=== PATIENT | female | born 1945 | race Caucasian/White ===

== ENCOUNTER 2018-03-09 08:18 | Day surgery (SDC) | payer OTHER ==
[~2018-03-09 08:18] MED LIST: ACETAMINOPHEN 325 MG TAB PO; PHENYLEPHRINE HCL 10 % OPHTH. SOL 5ML OS
[2018-03-09] MEDS ORDERED: OFLOXACIN 0.3 % (OCUFLOX) OPTH SOL 5ML As Ordered (08:21)
[2018-03-09] MEDS ORDERED: MIDAZOLAM INJ 2 MG/2 ML VIAL (J2250) As Ordered (08:51)
[2018-03-09] MEDS ORDERED: fentaNYL 100 MCG/2 ML INJECTION (J3010) As Ordered (08:51)
[2018-03-09 09:07] LABS: BEDSIDE GLUCOSE 136 MG/DL (83-110)
[2018-03-09] MEDS: LIDOCAINE 3.5 % 1ML OPHTH TOPICAL GEL OU (09:07)
[2018-03-09] MEDS: OFLOXACIN 0.3 % (OCUFLOX) OPTH SOL 5ML OS (09:07)
[2018-03-09] MEDS: TROPICAMIDE 1% OPHTH SOLN 2ML OS (09:08)
[2018-03-09] MEDS: PHENYLEPHRINE 2.5% OPHTH SOL 2ML OS (09:08)
[2018-03-09] MEDS: CYCLOPENTOLATE 2% OPHTH SOLN 2ML BTL OS (09:08)
[2018-03-09] MEDS: MOXIFLOXACIN IN BSS 0.25MG/0.25ML INTRACAMERAL INJ (OR EYE ONLY)(J2280) As Ordered (09:40)
[2018-03-09] MEDS: TRIAMCINOLONE PRES FR 40 MG/ML 1ML(TRIESENCE)(OR EYE ONLY)(J3300 PER 1MG) As Ordered (09:40)
[2018-03-09] MEDS: HEALON DUET (HEALON 10MG/ML 0.55ML & HEALON ENDOCOAT 30MG/ML 0.85ML) As Ordered (09:40)
[2018-03-09] MEDS: LIDOCAINE 1% SDV 5 ML VIAL As Ordered (09:40)
[2018-03-09] MEDS: POVIDONE-IODINE 5% OPHTH PREP SOL 30ML As Ordered (09:40)
[2018-03-09] MEDS: BSS with VANC/TOB/EPI for EYE CASES IR (09:41)
[2018-03-09] MEDS ORDERED: AcetaZOLAMIDE 500 MG ER CAP PO (10:00)
[2018-03-09] MEDS ORDERED: TRIMETHOBENZAMIDE 300 MG CAP PO (10:00)
[2018-03-09] MEDS ORDERED: AcetaZOLAMIDE 500 MG ER CAP As Ordered (10:01)
[2018-03-09] MEDS ORDERED: ACETAMINOPHEN TAB 650MG DOSE (2X325MG) PO (10:15)
[2018-03-09] MEDS ORDERED: LR 1,000 ML IV (10:15)
[2018-03-09] MEDS ORDERED: ONDANSETRON 4MG/2ML VIAL (J2405) IV (10:15)
== END 2018-03-09 10:40 | disposition home or self-care (01) ==
LOC: M SDC 08:18
DX: H26.9 Unspecified cataract (principal); I10 Essential (primary) hypertension; E11.9 Type 2 diabetes mellitus without complications; M17.12 Unilateral primary osteoarthritis, left knee; R21 Rash and other nonspecific skin eruption; F32.9 Major depressive disorder, single episode, unspecified; G47.30 Sleep apnea, unspecified; Z79.899 Other long term (current) drug therapy; Z79.84 Long term (current) use of oral hypoglycemic drugs
CPT/HCPCS: 66984

== ENCOUNTER 2018-05-02 08:54 | Day surgery (SDC) | payer MEDICARE, OTHER ==
[~2018-05-02 08:54] MED LIST changes: +PHENYLEPHRINE HCL 10 % OPHTH. SOL 5ML OD; -PHENYLEPHRINE HCL 10 % OPHTH. SOL 5ML OS
[2018-05-02] MEDS ORDERED: TROPICAMIDE 1% OPHTH SOLN 2ML As Ordered (09:30)
[2018-05-02] MEDS ORDERED: CYCLOPENTOLATE 2% OPHTH SOLN 2ML BTL As Ordered (09:30)
[2018-05-02] MEDS ORDERED: PHENYLEPHRINE 2.5% OPHTH SOL 2ML As Ordered (09:30)
[2018-05-02] MEDS ORDERED: OFLOXACIN 0.3 % (OCUFLOX) OPTH SOL 5ML As Ordered (09:30)
[2018-05-02 09:35] LABS: BEDSIDE GLUCOSE 155 MG/DL (83-110)
[2018-05-02] MEDS: OFLOXACIN 0.3 % (OCUFLOX) OPTH SOL 5ML OD (09:45)
[2018-05-02] MEDS: PHENYLEPHRINE 2.5% OPHTH SOL 2ML OD (09:45)
[2018-05-02] MEDS: LIDOCAINE 3.5 % 1ML OPHTH TOPICAL GEL OU (09:45)
[2018-05-02] MEDS: TROPICAMIDE 1% OPHTH SOLN 2ML OD (09:46)
[2018-05-02] MEDS: CYCLOPENTOLATE 2% OPHTH SOLN 2ML BTL OD (09:46)
[2018-05-02] MEDS ORDERED: fentaNYL 100 MCG/2 ML INJECTION (J3010) As Ordered (10:44)
[2018-05-02] MEDS ORDERED: MIDAZOLAM INJ 2 MG/2 ML VIAL (J2250) As Ordered (10:45)
[2018-05-02] MEDS: POVIDONE-IODINE 5% OPHTH PREP SOL 30ML As Ordered (11:13)
[2018-05-02] MEDS: LIDOCAINE 1% SDV 5 ML VIAL As Ordered (11:13)
[2018-05-02] MEDS: HEALON DUET (HEALON 10MG/ML 0.55ML & HEALON ENDOCOAT 30MG/ML 0.85ML) As Ordered (11:13)
[2018-05-02] MEDS: MOXIFLOXACIN IN BSS 0.25MG/0.25ML INTRACAMERAL INJ (OR EYE ONLY)(J2280) As Ordered (11:13)
[2018-05-02] MEDS: TRIAMCINOLONE PRES FR 40 MG/ML 1ML(TRIESENCE)(OR EYE ONLY)(J3300 PER 1MG) As Ordered (11:14)
[2018-05-02] MEDS: BSS with VANC/TOB/EPI for EYE CASES IR (11:14)
[2018-05-02] MEDS ORDERED: AcetaZOLAMIDE 500 MG ER CAP As Ordered (11:59)
[2018-05-02] MEDS: AcetaZOLAMIDE 500 MG ER CAP PO (12:05)
[2018-05-02] MEDS ORDERED: TRIMETHOBENZAMIDE 300 MG CAP PO (12:15)
== END 2018-05-02 12:15 | disposition home or self-care (01) ==
LOC: M SDC 08:54
DX: H25.9 Unspecified age-related cataract (principal); E11.9 Type 2 diabetes mellitus without complications; I10 Essential (primary) hypertension; Z79.899 Other long term (current) drug therapy; F41.9 Anxiety disorder, unspecified; F32.9 Major depressive disorder, single episode, unspecified
CPT/HCPCS: 66984

== ENCOUNTER → 2019-03-24 | Outpatient (CLI) | payer MEDICARE ==
[~2019-03-24] MED LIST changes: -ACETAMINOPHEN 325 MG TAB PO; +GLIP2.5T6; +LISI10TA4 PO; +METF500T13 PO; -PHENYLEPHRINE HCL 10 % OPHTH. SOL 5ML OD; +ROSU10TA5 PO; +VITA100067 PO
[2019-03-24 17:23] LABS: HEMATOCRIT 33.9 % (36.0-47.0); HEMOGLOBIN 10.8 g/dl (12.0-15.5); MEAN CORPUSCULAR HEMOGLOBIN 30.2 pg (27.0-33.0); MEAN CORPUSCULAR HGB CONC 31.9 g/dl (32.0-36.5); MEAN CORPUSCULAR VOLUME 94.7 fl (80.0-96.0); PLATELET COUNT, AUTOMATED 279 10^3/uL (150-450); RED BLOOD COUNT 3.58 10^6/uL (4.00-5.40); WHITE BLOOD COUNT 8.3 10^3/uL (4.0-10.0)
[2019-03-24 17:31] LABS: INR 0.97
[2019-03-24 17:38] LABS: ALBUMIN 3.7 GM/DL (3.2-5.2); ALT/SGPT 17 U/L (12-78); BILIRUBIN,TOTAL 0.3 MG/DL (0.2-1.0); BLOOD UREA NITROGEN 17 MG/DL (7-18); CARBON DIOXIDE LEVEL 26 MEQ/L (21-32); CHLORIDE LEVEL 109 MEQ/L (98-107); CREATININE FOR GFR 0.82 MG/DL (0.55-1.30); GLOMERULAR FILTRATION RATE > 60.0 (>39); GLUCOSE, FASTING 107 MG/DL (70-100); POTASSIUM SERUM 4.2 MEQ/L (3.5-5.1); SODIUM LEVEL 144 MEQ/L (136-145); TOTAL PROTEIN 7.7 GM/DL (6.4-8.2)
--- NOTE | 2019-03-24 19:41 | REP ---
REASON: Preoperative evaluation prior to knee surgery. FINDINGS: The superior mediastinal structures are midline. The cardiac silhouette is unremarkable in size, shape, and position. The diaphragmatic surfaces of the lungs are regular, and the costophrenic angles are clear. The pulmonary thomson are clear. The imaged osseous structures are intact. IMPRESSION: There is no acute cardiopulmonary disease. Electronically Signed by Jack Silverman DO 03/27/2019 12:56 P
--- NOTE | 2019-03-24 20:24 | ECGEPIP ---
[facility] Test Date: 2019-03-24 Pat Name: MARISSA CLEMENS Department: Room: - Gender: Female D[employer] Worker: [facility] : 1945 Requested By: Fabian Maxwell Order Number: [id number] Reading MD: Alex Ambrose Measurements Intervals [place] Rate: 57 P: 28 CO: 175 QRS: QRSD: 125 T: 51 QT: 416 QTc: 406 Interpretive Statements Sinus bradycardia LA conduction disturbance Left axis deviation Left ventricular hypertrophy by Alfredo No prior tracing for comparison. Clincal correlation advised criteria Electronically Signed on 03-24-2019 20:24:12 EDT by Alex Ambrose
[2019-03-24 21:04] LABS: ERYTHROCYTE SEDIMENTATION RATE 42 mm/hr (0-30)
== END ==
LOC: M LAB 15:39
PROVIDERS: ATTEND Orthopaedic Surgery
DX: Z01.818 Encounter for other preprocedural examination (principal); M17.12 Unilateral primary osteoarthritis, left knee; E10.9 Type 1 diabetes mellitus without complications

== ENCOUNTER → 2019-04-07 | Outpatient (CLI) | payer MEDICARE ==
[~2019-04-07] MED LIST changes: +PERC5TAB12 PO; +XARE10TA PO
== END ==
LOC: M PT 12:47
PROVIDERS: ATTEND Orthopaedic Surgery
DX: M17.12 Unilateral primary osteoarthritis, left knee (principal); Z01.818 Encounter for other preprocedural examination

== ENCOUNTER 2019-04-12 08:00 | Inpatient (IN) | payer MEDICARE ==
--- NOTE | 2019-04-07 08:13 | HPE ---
DATE OF ANTICIPATED ADMISSION: 04/12/2019 ATTENDING PHYSICIAN: Dr. Fabian Maxwell CHIEF COMPLAINT: Left knee pain and stiffness. HISTORY: Patient is a 73-year-old female with progressively worsening left knee pain and stiffness. She has failed to improve with conservative measures. She continues to have symptoms with weightbearing activities and activities of daily living. She has consented for an elective left total knee arthroplasty with Dr. Maxwell for her continued symptoms. CURRENT MEDICATIONS: - Metformin 500 mg twice daily - lisinopril 10 mg daily - rosuvastatin 10 mg daily ALLERGIES: There are no known drug allergies. CHRONIC MEDICAL CONDITIONS: 1. Diabetes 2. Hypertension 3. Hyperlipidemia. PREVIOUS SURGERIES: Include a hysterectomy. SOCIAL HISTORY: She does not use tobacco or alcohol. FAMILY HISTORY: Noncontributory. REVIEW OF SYSTEMS: Patient denies fevers, chills, nausea, vomiting or diarrhea. She denies chest pain, shortness of breath, lightheadedness, dizziness or headaches. She denies abdominal pain. She denies recent upper respiratory or urinary tract infection symptoms. The patient does continue to have left knee pain with weightbearing activities and activities of daily living. PHYSICAL EXAMINATION: GENERAL: Well-nourished, well-developed female in no apparent distress. She is alert, oriented and cooperative. Mood and affect are appropriate. VITAL SIGNS: Height 5 feet 1 inch, weight 159 pounds, temperature 97.1, blood pressure 118/68. NECK: Supple without lymphadenopathy. HEART: Regular rate and rhythm. LUNGS: Clear to auscultation bilaterally. ABDOMEN: Soft, nontender to palpation. Bowel sounds are present. MUSCULOSKELETAL: Left knee exhibits no erythema, edema or ecchymosis. There is tenderness along the medial joint line. Patient has full extension of the knee, but can only flex to about 100 degrees. Left lower extremity strength is 5/5. No hip irritability was elicited with range of motion testing. The patient's calf is soft, nontender to palpation with no palpable cords noted. She is neurovascularly intact distally. LABORATORY DATA: Chest x-ray: No acute cardiopulmonary disease. Left knee x-ray: Notable for end-stage degenerative changes with [id number] contact in the medial femoral tibial compartment. EKG: Sinus bradycardia with a left anterior conduction disturbance, left axis deviation and left ventricular hypertrophy. Prothrombin time 13, INR 0.97. Comprehensive metabolic profile: Fasting glucose elevated at 107, BUN 17, creatinine 0.82, GFR greater than 60, sodium 144, potassium 4.2, chloride elevated at 109, carbon dioxide 26, anion gap 9, calcium 9.0. AST 15, ALT 17, alkaline phosphatase 67, total bilirubin 0.3, total protein 7.7, albumin 3.7, albumin-globulin ratio decreased at 0.93. Complete blood count: WBC is 8.3, RBC is decreased at 3.58, hemoglobin decreased at 10.8, hematocrit decreased at 33.9, platelets 279. Erythrocyte sedimentation rate elevated at 42. IMPRESSION: Left knee osteoarthritis with x-rays notable for end-stage degenerative changes. PLAN: Patient has consented for an elective left total knee arthroplasty with Dr. Maxwell for her continued symptoms. Medical optimization pending with Dr. Stallworth. Patient was recently started on iron supplementation for her anemia. [facility]
[~2019-04-12] VITALS: Ht 154.9 cm; Wt 71.1 kg
[2019-04-12] VITALS (7 sets, daily range): BP systolic 94–146; BP diastolic 70–85
[~2019-04-12 08:00] MED LIST changes: -PERC5TAB12 PO; -XARE10TA PO
[2019-04-12] MEDS ORDERED: PROPOFOL 200 MG/20 ML VIAL As Ordered ONE (09:08)
[2019-04-12] MEDS ORDERED: ONDANSETRON 4MG/2ML VIAL (J2405) As Ordered ONE (09:08)
[2019-04-12] MEDS ORDERED: LIDOCAINE 2% INJ 100 MG/5 ML SDV (FOR ANES.) As Ordered ONE (09:08)
[2019-04-12] MEDS ORDERED: fentaNYL 100 MCG/2 ML INJECTION (J3010) As Ordered ONE ×2 (09:09→09:21)
[2019-04-12] MEDS ORDERED: MIDAZOLAM INJ 2 MG/2 ML VIAL (J2250) As Ordered ONE ×2 (09:09→09:21)
[2019-04-12] MEDS ORDERED: LR 1,000 ML IV ONE (09:45)
[2019-04-12] MEDS ORDERED: ceFAZolin 1GM INJ (J0690 PER 500MG) As Ordered ONE (10:09)
[2019-04-12] MEDS ORDERED: TRANEXAMIC ACID 100 MG/ML 10ML VIAL As Ordered ONE (10:09)
[2019-04-12] MEDS ORDERED: EPINEPHrine INJ 1 MG/ML 1ML AMP As Ordered ONE (10:10)
[2019-04-12] MEDS ORDERED: BUPIVACAINE LIPOSOME/PF 1.3% 20ML VIAL (13.3MG/ML)(EXPAREL)(C9290 PER1MG) As Ordered ONE (10:10)
--- NOTE | 2019-04-12 10:12 | IPN ---
DATE: 04/12/2019 Patient is going to go ahead with a left total knee arthroplasty. She was still having significant difficulties with it. She has had a preoperative clearance. She understands the nature of the procedure, the risks of bleeding, infection damage to nerves, vessels, persistent pain, wear loosening and blood clots, medical problems, among others. We will plan to proceed with a left knee arthroplasty.
[2019-04-12] MEDS ORDERED: MIDAZOLAM INJ 2 MG/2 ML VIAL (J2250) IV ONE (10:30)
[2019-04-12] MEDS ORDERED: fentaNYL 100 MCG/2 ML INJECTION (J3010) IV ONE (10:30)
[2019-04-12] MEDS ORDERED: ROPIvacaine 0.5% 30 ML INJECTION (J2795 PER 1MG) ONE (10:37)
[2019-04-12] MEDS ORDERED: dexameTHASONE 10 MG/1 ML VIAL PRES.FREE (J1100) ONE (10:37)
[2019-04-12] MEDS ORDERED: ceFAZolin 2 GM/D5W 50 ML IV BAG (J0690 PER 500MG) As Ordered ONE (10:40)
[2019-04-12] MEDS ORDERED: BUPIVACAINE/DEXTROSE 0.75% 2 ML AMP As Ordered ONE (11:24)
[2019-04-12] MEDS ORDERED: FLEET ENEMA PR PRN (13:00)
[2019-04-12] MEDS ORDERED: MORPHINE 4 MG/ML 1ML VIAL/SYRINGE (J2270) IV PRN ×2 (13:00)
[2019-04-12] MEDS ORDERED: ONDANSETRON 4MG/2ML VIAL (J2405) IV PRN ×3 (13:00→15:45)
[2019-04-12] MEDS ORDERED: fentaNYL 100 MCG/2 ML INJECTION (J3010) IV PRN ×2 (13:00→15:45)
[2019-04-12] MEDS ORDERED: ACETAMINOPHEN TAB 650MG DOSE (2X325MG) PO PRN (13:00)
[2019-04-12] MEDS ORDERED: LR 1,000 ML IV SCH ×2 (13:00→15:45)
--- NOTE | 2019-04-12 13:06 | RO ---
DATE OF PROCEDURE: 04/12/2019 PREOPERATIVE DIAGNOSIS: Left knee osteoarthritis. POSTOPERATIVE DIAGNOSIS: Left knee osteoarthritis. PROCEDURE: Left total knee arthroplasty using an Attune rotating platform cruciate sacrificing size 5 femur and 5 tibia with a 7 thickness polyethylene and a 35 patellar button. SURGEON: Fabian Maxwell MD COMMERCIAL ACCOUNT EXECUTIVE: DARIELA Newsome ANESTHESIA: Spinal. COMPLICATIONS: None. INDICATIONS: 73-year-old woman who has had gradually worsening left knee pain. She has had significant medial side arthritis and cystic change. She wished to go ahead with a knee replacement having failed conservative management. She understood the nature and the risks associated with it. DESCRIPTION OF PROCEDURE: The patient was taken to the operating room and placed supine position after spinal anesthesia was induced. The left lower extremity was prepped and draped in usual sterile fashion. Time-out was performed. I then created a longitudinal incision over the anterior aspect of the knee. Sharp dissection was carried down through subcutaneous tissue. Performed a medial parapatellar arthrotomy per routine. I then everted the patella, flexed the knee up, removed some osteophytes with a rongeur. There was a large cystic defect on the medial femoral condyle. I used a canal initiating reamer, followed by the intramedullary guide set at 5 degrees of valgus 9 mm cut. This was pinned in place by the pediatric physician assistant. The distal femoral cut was made, which effectively removed the cystic change. I then sized the femur to be a 5 and the drill holes were placed in the end of the femur with a cutting block being secured, and the remaining four cuts were made. I then prepared the tibia. Post retractors placed and the tibial alignment guide was placed in appropriate amount of valgus and posterior slope, and I pinned this in place 4 mm off the low side. The proximal tibia cut was made protecting the posterior cruciate ligament (PCL) but the PCL was deficient following this, so I decided to go with a posterior stabilized knee. We then used a grey percher to remove soft tissue and osteophytes from either side of the knee. This box cutting guide was then secured, and the remaining three cuts were made. I sized the tibia to be a 5. This was drilled and broached, and then trial components were placed. I was very pleased with the fit of the size 5 femur and 5 tibial tray. I had also used spacer blocks and decided between a 7 and an 8 polyethylene, but the 7 seemed to be the most appropriate with the trial components. I then freehand cut the patella removing about 7 mm of bone, sized to be a 35. The drill holes were placed and the drill holes were placed in the end of the femur, and the patella tracked very nicely. The pediatric physician assistant prepared the bone cement in the modern technique. Overall, I was very pleased with the alignment and soft tissue balance. The trial components removed. I then cemented on the tibial tray, impacted it in place. Cemented on the femoral component, impacted it in place. Removed all excess bone cement. Placed the polyethylene. Brought the knee out in extension. Cemented on the patella and held this in place with a patellar clamp. I injected the Exparel in the deep tissues. The tranexamic acid (TXA) solution was placed. I had irrigated multiple times prior to this and carefully irrigated and dried the bony surfaces prior to cementing. Final deep irrigation was performed. I closed the deep layer with #1 Vicryl suture in interrupted fashion, followed by running Stratafix suture. This obtained a watertight closure. Irrigated the subcu and this was closed #2-0 Vicryl and the skin with jocelyn. Sterile dressing was applied. Tourniquet was deflated, and she was taken to recovery room in stable condition. There were no known complications. The plan will be routine postop. The pediatric physician assistant was instrumental in holding retractors, making the distal femoral cut, assisting in mixing the bone cement, and assisting in wound closure.
--- NOTE | 2019-04-12 13:07 | REP ---
Clinical: Status post knee replacement. Technique AP and cross-table lateral views. Findings: The patient is status post left knee replacement with normal positioning and appearance to the femoral and tibial components. Overlying postsurgical changes appreciated. Impression: Status post left knee replacement. Electronically Signed by Marquise Vazquez MD 04/12/2019 12:59 P
[2019-04-12] MEDS: LR 1,000 ML IV SCH (14:15)
[2019-04-12] MEDS ORDERED: GLUCAGON FOR INJ 1 MG VIAL (J1610) SC PRN (14:45)
[2019-04-12] MEDS ORDERED: GLUCOSE 4 GM CHEW TABLET PO PRN (14:45)
[2019-04-12] MEDS ORDERED: DEXTROSE 50% 50 ML SYRINGE IV PRN (14:45)
[2019-04-12 15:13] LABS: HEMATOCRIT 33.5 % (36.0-47.0); HEMOGLOBIN 10.8 g/dl (12.0-15.5); MEAN CORPUSCULAR HEMOGLOBIN 30.8 pg (27.0-33.0); MEAN CORPUSCULAR HGB CONC 32.2 g/dl (32.0-36.5); MEAN CORPUSCULAR VOLUME 95.4 fl (80.0-96.0); PLATELET COUNT, AUTOMATED 245 10^3/uL (150-450); RED BLOOD COUNT 3.51 10^6/uL (4.00-5.40); WHITE BLOOD COUNT 10.1 10^3/uL (4.0-10.0)
--- NOTE | 2019-04-12 15:32 | CR ---
DATE OF CONSULTATION: 04/12/2019 PRIMARY CARE PROVIDER: Dr. Greyson Stallworth. REFERRING PHYSICIAN: Dr. Fabian Maxwell. REASON FOR CONSULTATION: Medical management of diabetes and hypertension. HISTORY OF PRESENT ILLNESS: 73-year-old female with a past medical history significant for diabetes, hypertension, osteoarthritis bilateral knees and hyperlipidemia, previous history of uterine prolapse with hysterectomy, bilateral cataract surgery and cholecystectomy who presents for left knee replacement due to worsening activities of daily living (ADLs) and inability to weight bear. Patient otherwise feels well. Patient underwent left knee replacement with postop 5/10 dull achiness for which she is requesting pain medications. No fevers, shortness of breath, chest pain, pressure or tightness, lightheadedness or dizziness after surgery. Lower extremity numbness has worn off after postoperatively. She otherwise has no fever, chills, dysuria, urgency or frequency. Hospitalist was consulted to manage diabetes, hypertension, and hyperlipidemia. The patient says she lives alone with her dog in an apartment in [place] with an elevator. She has help both from her daughter, who lives in [place], and her future [id number], who works at [employer] as well as a sister in [place]. Everything is on one floor and no other physical obstructions for ambulation at home. PAST MEDICAL HISTORY: Diabetes. Hypertension. Hyperlipidemia. Uterine prolapse. PAST SURGICAL HISTORY: Hysterectomy secondary to uterine prolapse. Three vaginal deliveries. Cholecystectomy. Bilateral cataract surgery. SOCIAL HISTORY: Lives alone with her dog. Has help. A sister who lives in [place], daughter in [place], and a future [id number] who works at [employer], who will be bringing her home tomorrow. Patient is retired, previously worked as a meat dresser and in retail. She did try smoking when she was a teenager. Denies any recreational drug use. FAMILY HISTORY: Mother at age 67 with lung cancer with bone mets. Had previous exposure to asbestos. Also was a diabetic. Stepfather unknown. Biological father unknown. She has two sisters and three brothers, unknown medical illnesses. REVIEW OF SYSTEMS: 12-point system otherwise negative. HOME MEDICATIONS: Please see below. PHYSICAL EXAMINATION: Temperature 97.5, pulse 71, respiratory rate 18, blood pressure 145/57, 98% 2 liters nasal cannula. Generally, awake, alert and oriented times three. No cyanosis. No use of respiratory accessory muscles. Anicteric sclerae. No jaundice. No cervical lymphadenopathy or thyromegaly. Moist mucous membranes. Lungs are clear auscultation. No wheezing, rales or rhonchi. Heart: S1, S2, sinus rhythm. No murmurs, rubs or gallops. Abdomen: Soft, obese, nontender, nondistended. Positive bowel sounds in all four quadrants. Extremities: Left postop bandage. Skin warm and dry currently has thromboembolic deterrent stockings (TEDS) stockings. Able to wiggle all of her toes. LABORATORY DATA: Glucose 162. No labs are available. ASSESSMENT/PLAN: 73-year-old with diabetes, hypertension, hyperlipidemia, uterine prolapse, previous hysterectomy, gallbladder surgery, bilateral cataract surgery presents for left knee replacement due to severe osteoarthritis and difficulty with activities of daily living (ADLs). CURRENT ISSUES: 1. Postop left knee secondary to osteoarthritis with left knee replacement. Postop management per primary team, Dr. Maxwell. Activity and deep venous thrombosis prophylaxis, bowel regimen. 2. Diabetes: Check A1c. Patient will be placed on consistent carbohydrate diet, insulin sliding scale with coverage and will adjust medications accordingly. Her metformin will be held as an inpatient. Will be resumed as an outpatient. 3. Hypertension: Currently controlled on lisinopril, which we will continue. Check a creatinine level and adjust accordingly. 4. Hyperlipidemia: Check lipid panel in the morning. Resume patient's rosuvastatin. 5. Uterine prolapse status post hysterectomy. 6. Deep venous thrombosis prophylaxis per primary team. 7. Diet: Consistent carbohydrate diet. DISPOSITION: Defer to primary team. Acute rehabilitation unit, physical therapy (ARUPT), acute rehabilitation unit have been consulted,
[2019-04-12 15:52] LABS: BLOOD UREA NITROGEN 20 MG/DL (7-18); CALCIUM LEVEL 9.4 MG/DL (8.8-10.2); CARBON DIOXIDE LEVEL 26 MEQ/L (21-32); CHLORIDE LEVEL 109 MEQ/L (98-107); CREATININE FOR GFR 0.88 MG/DL (0.55-1.30); GLOMERULAR FILTRATION RATE > 60.0 (>39); GLUCOSE, FASTING 174 MG/DL (70-100); POTASSIUM SERUM 4.3 MEQ/L (3.5-5.1); SODIUM LEVEL 140 MEQ/L (136-145); THYROID STIMULATING HORMONE 0.768 uIU/ML (0.358-3.740)
[2019-04-12] MEDS: NORCO, ANEXSIA 5/325MG TABLET (HYDROcodone/ACETAMINOPHEN) PO PRN ×2 (16:16→20:51)
[2019-04-12] MEDS: ROSUVASTATIN 10 MG TAB (CRESTOR) PO SCH (16:16)
[2019-04-12 16:25] LABS: HEMOGLOBIN A1c 7.9 %
[2019-04-12] MEDS: HumaLOG INSULIN (NovoLOG) PER UNIT SC SCH (17:24)
[2019-04-12] MEDS ORDERED: HumaLOG INSULIN (NovoLOG) PER UNIT SC SCH (21:00)
[2019-04-13 02:00] VITALS: BP 109/65
[2019-04-13] MEDS: LR 1,000 ML IV SCH (02:20)
[2019-04-13] MEDS: NORCO, ANEXSIA 5/325MG TABLET (HYDROcodone/ACETAMINOPHEN) PO PRN ×3 (02:21→14:05)
[2019-04-13 06:00] VITALS: BP 136/70
[2019-04-13] MEDS ORDERED: PERCOCET 5MG/325MG TAB PO PRN ×2 (06:15)
[2019-04-13] MEDS ORDERED: PERC5TAB12 PO (06:30)
[2019-04-13] MEDS ORDERED: XARE10TA PO (06:30)
[2019-04-13 06:44] LABS: HEMATOCRIT 26.8 % (36.0-47.0); MEAN CORPUSCULAR HEMOGLOBIN 30.6 pg (27.0-33.0); MEAN CORPUSCULAR HGB CONC 32.5 g/dl (32.0-36.5); MEAN CORPUSCULAR VOLUME 94.4 fl (80.0-96.0); PLATELET COUNT, AUTOMATED 212 10^3/uL (150-450); RED BLOOD COUNT 2.84 10^6/uL (4.00-5.40); WHITE BLOOD COUNT 15.7 10^3/uL (4.0-10.0)
[2019-04-13 06:51] LABS: HEMOGLOBIN 8.7 g/dl (12.0-15.5)
[2019-04-13 08:23] VITALS: BP 136/70
[2019-04-13] MEDS: ROSUVASTATIN 10 MG TAB (CRESTOR) PO SCH (08:24)
[2019-04-13] MEDS ORDERED: LISINOPRIL 10 MG TAB PO SCH (09:00)
[2019-04-13] MEDS ORDERED: MIRALAX *UNIT DOSE* 17GM PACKET PO SCH (09:00)
[2019-04-13] MEDS ORDERED: MOM 30ML SUSPENSION UDC PO SCH (09:00)
[2019-04-13] MEDS: HumaLOG INSULIN (NovoLOG) PER UNIT SC SCH ×2 (09:14→13:17)
--- NOTE | 2019-04-13 09:39 | IPNPDOC ---
Date Seen The patient was seen on 04/13/19. Progress Note SUBJECTIVE: pt c/o 3/10 pain scale at rest but 8/10 with ambulation improved with pain meds no c/o sob, chest pain, pressure, tightness, palpitations. OBJECTIVE: PHYSICAL EXAMINATION: VITALS: PLS SEE BELOW Generally, awake, alert and oriented times three. No cyanosis. No use of respiratory accessory muscles. Anicteric sclerae. No jaundice. No cervical lymphadenopathy or thyromegaly. Moist mucous membranes. Lungs are clear auscultation. No wheezing, rales or rhonchi. Heart: S1, S2, sinus rhythm. No murmurs, rubs or gallops. Abdomen: Soft, obese, nontender, nondistended. Positive bowel sounds in all four quadrants. Extremities: Left postop bandage. Skin warm and dry currently has thromboembolic deterrent stockings (TEDS) stockings. Able to wiggle all of her toes. LABORATORY DATA: Glucose 162. No labs are available. ASSESSMENT/PLAN: 73-year-old female with a past medical history significant for diabetes, hypertension, osteoarthritis bilateral knees and hyperlipidemia, previous history of uterine prolapse with hysterectomy, bilateral cataract surgery and cholecystectomy who presents for left knee replacement due to worsening activities of daily living (ADLs) and inability to weight bear. Patient otherwise feels well. Patient underwent left knee replacement with postop 5/10 dull achiness for which she is requesting pain medications. No fevers, shortness of breath, chest pain, pressure or tightness, lightheadedness or dizziness after surgery. Lower extremity numbness has worn off after postoperatively. She otherwise has no fever, chills, dysuria, urgency or frequency. Hospitalist was consulted to manage diabetes, hypertension, and hyperlipidemia. The patient says she lives alone with her dog in an apartment in [place] with an elevator. She has help both from her daughter, who lives in [place], and her future [id number], who works at [employer] as well as a sister in [place]. Everything is on one floor and no other physical obstructions for ambulation at home. Postop left knee secondary to osteoarthritis with left knee replacement. Postop management per primary team, Dr. Maxwell. Activity and deep venous thrombosis prophylaxis, bowel regimen. Diabetes: Check A1c. Patient will be placed on consistent carbohydrate diet, insulin sliding scale with coverage and will adjust medications accordingly. Her metformin will be held as an inpatient. Will be resumed as an outpatient. Hypertension: Currently controlled on lisinopril, which we will continue. Check a creatinine level and adjust accordingly. Hyperlipidemia: Check lipid panel in the morning. Resume patient's rosuvastatin. Uterine prolapse status post hysterectomy. Deep venous thrombosis prophylaxis per primary team. Diet: Consistent carbohydrate diet. DISPOSITION: Defer to primary team. Acute rehabilitation unit, physical therapy (ARUPT), acute rehabilitation unit have been consulted, VS, I&O, 24H, Alin Vital Signs/I&O Vital Signs Date Time Temp Pulse Resp B/P (MAP) Pulse Ox O2 Delivery O2 Flow Rate FiO2 04/13/19 06:00 97.7 83 18 136/70 (92) 97 04/12/19 18:15 2.0 I&O- Last 24 Hours up to 6 AM 04/13/19 06:00 Intake Total 3791 ml Output Total 1500 ml Balance 2291 ml Laboratory Data 24H LABS Laboratory Tests 2 04/12/19 13:04: Bedside Glucose (Misc Panel) 162H 04/12/19 15:03: Nucleated Red Blood Cells % (auto) 0.0, Anion Gap 5L, Glomerular Filtration Rate > 60.0, Estimated Mean Plasma Glucose 180H, Hemoglobin A1c 7.9, Blood Urea Nitr ogen 20H, Creatinine 0.88, Sodium Level 140, Potassium Level 4.3, Chloride Level 109H, Carbon Dioxide Level 26, Calcium Level 9.4, Thyroid Stimulating Hormone (TSH) 0.768 04/12/19 16:04: Bedside Glucose (Misc Panel) 206H 04/12/19 20:13: Bedside Glucose (Misc Panel) 317H 04/13/19 06:20: Nucleated Red Blood Cells % (auto) 0.0 CBC/BMP Laboratory Tests 04/12/19 08:37 04/12/19 15:03 Red Blood Count 3.51 L, Mean Corpuscular Volume 95.4, Mean Corpuscular Hemoglobin 30.8, Mean Corpuscular Hemoglobin Concent 32.2, Red Cell Distribution Width 13.1, Calcium Level 9.4 04/13/19 06:20 Red Blood Count 2.84 L, Mean Corpuscular Volume 94.4, Mean Corpuscular Hemoglobin 30.6, Mean Corpuscular Hemoglobin Concent 32.5, Red Cell Distribution Width 12.7 RASHID JOSEPH MD Apr 13, 2019 07:26
[2019-04-13 10:00] VITALS: BP 123/68
[2019-04-13 14:00] VITALS: BP 131/62
[2019-04-13] MEDS ORDERED: RIVAROXABAN 10 MG TAB (XARELTO) PO SCH (18:00)
== END 2019-04-13 16:55 | disposition home or self-care (01) | DRG 470 ==
LOC: M SDC 08:00 → M OR 08:09 → EDSTATUS 10:35 → M MS5PR 14:30
PROVIDERS: ADMIT Orthopaedic Surgery; ATTEND Orthopaedic Surgery
PROC: 0SRD0J9 Replacement of Left Knee Joint with Synthetic Substitute, Cemented, Open Approach (ICD-10-PCS; principal; 2019-04-12 10:45)
DX: M17.12 Unilateral primary osteoarthritis, left knee (principal); Z79.899 Other long term (current) drug therapy; E11.9 Type 2 diabetes mellitus without complications; I10 Essential (primary) hypertension; E78.5 Hyperlipidemia, unspecified

== ENCOUNTER → 2019-08-30 | Outpatient (CLI) | payer MEDICARE ==
[~2019-08-30] MED LIST changes: +PERC5TAB12 PO; -ROSU10TA5 PO; +ROSU10TA6 PO; +XARE10TA PO
--- NOTE | 2019-08-30 12:49 | REPMRS ---
Patient History The patient states she has not had a clinical breast exam in over a year. Patient is postmenopausal. Family history of breast cancer in maternal cousin, breast cancer in maternal cousin. Benign US guided breast biopsy of the right breast, 2014. No Hormone Replacement Therapy Digital Woman Screen Mammo: August 30, 2019 - Exam #: [id number] Bilateral CC and MLO view(s) were taken. Technologist: Michelle Hall, Technologist Prior study comparison: March 03, 2017, bilateral digital mammo screening bilat, performed at [facility]. FINDINGS: The breast tissue is heterogeneously dense. This may lower the sensitivity of mammography. There is a moderate amount of heterogeneously dense fibroglandular tissue which is fairly symmetric. There is no interval development of dominant mass, architectural distortion, or grouped microcalcification typical of malignancy. There has been no change in the appearance of the mammogram from the prior studies. 3-D tomosynthesis shows no additional findings. Assessment: BI-RADS/ACR category 1 mammogram. Negative Mammogram. Recommendation Routine screening mammogram of both breasts in 1 year (for women over age 40). This patient's Lifetime Breast Cancer RIsk is estimated at 3.0 %. This mammogram was interpreted with the aid of an FDA-approved computer-aided dectection system. Electronically Signed By: Jeremy Potter MD 08/30/19 [id number]
== END ==
LOC: M WHC 09:25
PROVIDERS: ATTEND Internal Medicine
DX: Z12.31 Encounter for screening mammogram for malignant neoplasm of breast (principal)

== ENCOUNTER 2020-06-07 15:49 | Emergency (ER) | payer MEDICARE ==
[~2020-06-07] VITALS: Ht 154.9 cm; Wt 66.9 kg
[2020-06-07] MEDS ORDERED: TRIAMCINOLONE ACET 0.1% CREAM 15 GM TOP ONE (16:15)
[2020-06-07 16:43] LABS: BASO % 0.4 % (0.0-1.0); EOS # 0.7 10^3/uL (0.0-0.5); HEMATOCRIT 33.4 % (36.0-47.0); HEMOGLOBIN 10.9 g/dl (12.0-15.5); LYMPH # 2.1 10^3/uL (1.5-5.0); LYMPH % 21.5 % (24.0-44.0); MEAN CORPUSCULAR HEMOGLOBIN 30.4 pg (27.0-33.0); MEAN CORPUSCULAR HGB CONC 32.6 g/dl (32.0-36.5); MEAN CORPUSCULAR VOLUME 93.3 fl (80.0-96.0); MONO # 0.9 10^3/uL (0.0-0.8); MONO % 8.9 % (0.0-5.0); NEUTROPHILS % 61.8 % (36.0-66.0); PLATELET COUNT, AUTOMATED 249 10^3/uL (150-450); RED BLOOD COUNT 3.58 10^6/uL (4.00-5.40); WHITE BLOOD COUNT 9.7 10^3/uL (4.0-10.0)
[2020-06-07 17:07] LABS: C REACTIVE PROTEIN QUANTITATIV 0.72 MG/DL (0.00-0.30); CALCIUM LEVEL 9.5 MG/DL (8.8-10.2); CREATININE FOR GFR 1.1 MG/DL (0.55-1.30); GLOMERULAR FILTRATION RATE 51.5 (>39); POTASSIUM SERUM 4.1 MEQ/L (3.5-5.1)
[2020-06-07] MEDS ORDERED: BACT800T5 PO (17:36)
[2020-06-07] MEDS ORDERED: TRIA1OI TOP (17:36)
[2020-06-07 17:42] VITALS: BP 130/63
[2020-06-07 17:46] LABS: ERYTHROCYTE SEDIMENTATION RATE 47 mm/hr (0-30)
== END 2020-06-07 17:50 | disposition home or self-care (01) ==
LOC: M ED 15:49
DX: N39.0 Urinary tract infection, site not specified (principal); L03.90 Cellulitis, unspecified; E11.9 Type 2 diabetes mellitus without complications; I10 Essential (primary) hypertension; E78.5 Hyperlipidemia, unspecified; Z96.652 Presence of left artificial knee joint; Z79.899 Other long term (current) drug therapy; Z79.84 Long term (current) use of oral hypoglycemic drugs